=== PATIENT | male | born 1940 ===

== ENCOUNTER 2016-10-07 09:55 | Day surgery (SDC) | payer MEDICARE ==
[2015-08-03 10:37] VITALS: BMI 24.0
[2016-10-07 11:02] VITALS: O2SAT 100
[2016-10-07] MEDS ORDERED: Propofol 10 mg/ml Inj (20 ML) ONE (11:26)
[2016-10-07 12:47] VITALS: TEMP 96.7
[2016-10-07 13:52] VITALS: PULSE 62
[2016-10-07 13:53] VITALS: BP 116/59; RESP 11
== END 2016-10-07 13:25 | disposition home or self-care (01) ==
LOC: C.ENDO 09:55
PROVIDERS: ATTEND Internal Medicine Gastroenterology
DX: D12.5 Benign neoplasm of sigmoid colon (principal); D50.9 Iron deficiency anemia, unspecified; K44.9 Diaphragmatic hernia without obstruction or gangrene; K29.60 Other gastritis without bleeding
CPT/HCPCS: 43239; 45388; 88305; J2704